=== PATIENT | female | born 1930 | race Caucasian/White ===

== ENCOUNTER 2017-10-09 13:35 | Emergency (ER) | payer MEDICARE ==
[~2017-10-09] VITALS: Ht 165.1 cm; Wt 67.1 kg
[~2017-10-09 13:35] MED LIST: CALCIUM; CELEBREX; CLIN150 PO; CRESTOR; CYCL10; DIOVAN; DITROPAN; ESCI10 PO; Fibercon625 MG PO; Florastor250 MG PO; HYDACE5 PO; HYDR1TAB94; LEVSOD88 PO; Lovenox100 MG/1 M SC; MIRT15ST MM; Synthroid112 MCG PO; THYROID; VITAMIN D; Vancocin HCL1000 M1 PO; WARF2; WARF5; ZOLP5 PO; [UNRECOGNIZED DRUG - OTHER]
[2017-10-09] MEDS ORDERED: Hair, Skin & N1 EACH PO (15:03)
[2017-10-09] MEDS ORDERED: SACC250C PO (15:04)
[2017-10-09] MEDS ORDERED: Percocet 5-3251 EACH PO (17:20)
== END 2017-10-09 17:33 | disposition home or self-care (01) ==
LOC: ER 13:35
DX: T84.020A Dislocation of internal right hip prosthesis, initial encounter (principal); E03.9 Hypothyroidism, unspecified; I10 Essential (primary) hypertension; Z87.891 Personal history of nicotine dependence; Z96.643 Presence of artificial hip joint, bilateral; X37.1XXA Tornado, initial encounter
CPT/HCPCS: 27265; 73502; 96374; 99152; 99284; J3010; J7030

== ENCOUNTER → 2018-07-18 | Outpatient (CLI) | payer MEDICARE, OTHER ==
[~2018-07-18] MED LIST changes: +Hair, Skin & N1 EACH PO; +Percocet 5-3251 EACH PO; +SACC250C PO
== END | disposition home or self-care (01) ==
LOC: LAB 17:50 → LAB SHORT 17:50
DX: R19.7 Diarrhea, unspecified (principal)
CPT/HCPCS: 87493

== ENCOUNTER 2019-08-08 10:44 | Observation (INO) | payer MEDICARE, OTHER ==
[~2019-08-08] VITALS: Ht 162.6 cm; Wt 58.2 kg
[2019-08-08 12:38] LABS: BASOPHILS ABSOLUTE AUTO 0.07 K/mm3 (0.00-0.23); BASOPHILS PERCENT AUTO 1 % (0-2); EOSINOPHILS ABSOLUTE AUTO 0.08 K/mm3 (0.00-0.68); EOSINOPHILS PERCENT AUTO 1 % (0-6); Hematocrit 40.5 % (33.0-51.0); Hemoglobin 14.2 g/dL (11.5-16.0); IMMATURE GRAN ABSOLUTE AUTO 0.02 K/mm3 (0.00-0.10); IMMATURE GRAN PERCENT AUTO 0 % (0-1); LYMPHOCYTES ABSOLUTE AUTO 1.24 K/mm3 (0.84-5.20); LYMPHOCYTES PERCENT AUTO 12 % (21-46); MONOCYTES ABSOLUTE AUTO 0.92 K/mm3 (0.16-1.47); MONOCYTES PERCENT AUTO 9 % (4-13); Mean Corpuscular HGB 31.9 pg (26.0-34.0); Mean Corpuscular HGB Conc 35.1 g/dL (31.5-36.5); Mean Corpuscular Volume 91 fL (80-100); NEUTROPHILS ABSOLUTE AUTO 7.76 K/mm3 (1.96-9.15); NEUTROPHILS PERCENT AUTO 77 % (41-73); Platelet Count 390 K/mm3 (150-400); RDW Coefficient Variation 12.5 % (11.7-14.2); RDW Standard Deviation 41.7 fL (35.1-46.3); Red Blood Cell Count 4.45 M/mm3 (3.80-5.20); White Blood Cell Count 10.09 K/mm3 (4.00-11.30)
[2019-08-08 13:00] LABS: Alanine Aminotransfer (ALT/SGP 19 U/L (12-78); Albumin, Blood 3.3 g/dL (3.4-5.0); Albumin/Globulin Ratio 0.7 (0.8-1.8); Alk Phos 97 U/L (50-136); Anion Gap 9 mmol/L (6-16); Aspartate Aminotrans (AST/SGOT 15 U/L (12-37); Bilirubin, Total 0.7 mg/dL (0.1-1.0); Blood Urea Nitrogen 26 mg/dL (8-24); Bun/Creatinine Ratio 31.8 (12.0-20.0); CO2, Blood 26 mmol/L (21-32); Calcium, Blood 9.1 mg/dL (8.5-10.1); Chloride, Blood 104 mmol/L (98-108); Creatinine, Blood 0.82 mg/dL (0.40-1.00); Globulin, Blood 4.6 g/dL (2.2-4.0); Glomerular Filtration Rate >60 (60-); Glucose, Blood 117 mg/dL (70-99); Potassium, Blood 2.7 mmol/L (3.5-5.5); Sodium, Blood 139 mmol/L (136-145); Total Protein, Blood 7.9 g/dL (6.4-8.2)
[2019-08-08 14:30] LABS: Magnesium, Blood 1.9 mg/dL (1.6-2.4); Phosphorus, Blood 2.3 mg/dL (2.5-4.9)
[2019-08-08] MEDS ORDERED: MICROZIDE12.5 M2 PO (15:32)
[2019-08-08 18:33] LABS: Source, Urine Clean Catch
[2019-08-08 18:39] LABS: Bilirubin, Urine Neg (Neg); Blood, Urine 2+ (Neg); Glucose Qualitative, Urine Neg (Neg); Ketones, Urine 2+ (Neg); Leukocyte Esterase, Urine 1+ (Neg); Nitrite, Urine Neg (Neg); Protein, Urine 1+ (Neg); Specific Gravity, Urine 1.015 (1.003-1.022); Urobilinogen, Urine 1+ (Normal)
[2019-08-08 18:56] LABS: Appearance, Urine Clear (Clear); Color, Urine Amber (P-Yellow)
[2019-08-08 18:57] LABS: Bacteria Many /hpf; Mucus Light (0-Heavy); Red Blood Cells, Urine 0-2 /hpf (0-2); Squamous Epithelial Cells Few /hpf (Few); White Blood Cells, Urine 0-2 /hpf (0-5)
--- NOTE | 2019-08-08 20:02 | NUR ---
ADMIT NOTE- RECIEVED TELEPHONE REPORT FROM ED RN. PASSED ON IN REPORT TO NIGHT RN FRANNIE WHO IS DOING THE ADMIT AT THIS TIME. PT ALERT AND ORIENTED TO SELF AND FAMILY. PT HAS A PURPLE TURBINE AND SUNGLASSES THAT SHE IS WEARING AND DOES NOT WANT TO REMOVE.
[2019-08-08] MEDS ORDERED: FERSU300 PO (20:19)
--- NOTE | 2019-08-09 04:59 | NUR ---
SHIFT SUMMARY PT AOX4. PT HAD NO COMPLAINTS NOTED. PT HAS SLEPT WELL T/O SHIFT. PT DENIES ANY DISCOMFORT. PT CURRENTLY SLEEPING AND BREATHING EASY. CALL LIGHT IN REACH
[2019-08-09 05:02] LABS: BASOPHILS ABSOLUTE AUTO 0.05 K/mm3 (0.00-0.23); BASOPHILS PERCENT AUTO 1 % (0-2); EOSINOPHILS ABSOLUTE AUTO 0.16 K/mm3 (0.00-0.68); EOSINOPHILS PERCENT AUTO 3 % (0-6); Hematocrit 32.8 % (33.0-51.0); Hemoglobin 11.4 g/dL (11.5-16.0); IMMATURE GRAN ABSOLUTE AUTO 0.03 K/mm3 (0.00-0.10); IMMATURE GRAN PERCENT AUTO 1 % (0-1); LYMPHOCYTES ABSOLUTE AUTO 1.64 K/mm3 (0.84-5.20); LYMPHOCYTES PERCENT AUTO 25 % (21-46); MONOCYTES ABSOLUTE AUTO 0.71 K/mm3 (0.16-1.47); MONOCYTES PERCENT AUTO 11 % (4-13); Mean Corpuscular HGB 31.7 pg (26.0-34.0); Mean Corpuscular HGB Conc 34.8 g/dL (31.5-36.5); Mean Corpuscular Volume 91 fL (80-100); Mean Platelet Volume 9.7 fL (9.1-12.4); NEUTROPHILS ABSOLUTE AUTO 3.93 K/mm3 (1.96-9.15); NEUTROPHILS PERCENT AUTO 60 % (41-73); Platelet Count 314 K/mm3 (150-400); RDW Coefficient Variation 12.7 % (11.7-14.2); White Blood Cell Count 6.52 K/mm3 (4.00-11.30)
[2019-08-09 05:37] LABS: Magnesium, Blood 1.7 mg/dL (1.6-2.4)
[2019-08-09 05:51] LABS: Alanine Aminotransfer (ALT/SGP 12 U/L (12-78); Albumin, Blood 2.6 g/dL (3.4-5.0); Albumin/Globulin Ratio 0.7 (0.8-1.8); Alk Phos 65 U/L (50-136); Anion Gap 7 mmol/L (6-16); Aspartate Aminotrans (AST/SGOT 18 U/L (12-37); Bilirubin, Total 0.7 mg/dL (0.1-1.0); Blood Urea Nitrogen 17 mg/dL (8-24); Bun/Creatinine Ratio 27.4 (12.0-20.0); CO2, Blood 25 mmol/L (21-32); Calcium, Blood 8.1 mg/dL (8.5-10.1); Chloride, Blood 109 mmol/L (98-108); Creatinine, Blood 0.62 mg/dL (0.40-1.00); Globulin, Blood 3.6 g/dL (2.2-4.0); Glomerular Filtration Rate >60 (60-); Glucose, Blood 90 mg/dL (70-99); Phosphorus, Blood 2.4 mg/dL (2.5-4.9); Potassium, Blood 3.5 mmol/L (3.5-5.5); Sodium, Blood 141 mmol/L (136-145); Total Protein, Blood 6.2 g/dL (6.4-8.2)
--- NOTE | 2019-08-09 18:43 | NUR ---
SHIFT SUMMARY- PT ALERT AND ORIENTED. STATES SHE HAS LIGHT SENSITIVITY. IVF DC'D TODAY AND PT IV'S ARE SL AT THIS TIME. PT POTASSIUM IS UP TO 3.5 AT THE START OF THE SHIFT PT RECIEVING PO POTASSIUM AT THIS TIME. PT IS NOT VOIDING. BLADDER SCAN THIS MORNING SHOWED 750ML IN. NEW ORDER FOR STRAIGHT CATH AND WAIT 4 HOURS THEN BLADDER SCAN POST VOID, STRAIGHT CATH FOR VOLUME GREATER THAN 150. PT STATED SHE DOES NOT NEED TO VOID. BLADDER SCAN SHOWED 450ML. SPOKE TO DR VICK ORDER RECIEVED FOR BLADDER SCAN Q6 POST VOID (IF PT IS ABLE) AND STRAIGHT CATH FOR VOLUMES GREATER THAN 250ML.
--- NOTE | 2019-08-10 04:26 | NUR ---
SHIFT SUMMARY: PATIENT UP TO BSC SEVERAL TIMES THIS SHIFT WITH SOME SUCCESS. PATIENT RIGHT LEG VERY PAINFULL WITH LOSS OF ROM. WALKER USED FOR MOBILITY BUT PATIENT STILL NEEDS STRONG ASSIST. PATIENT COMPLIANT WITH USE OF CALL LIGHT, BED LOW AND LOCKED WITH EXIT ALARM ON, ALL OTHER VSS
[2019-08-10 06:20] LABS: Anion Gap 8 mmol/L (6-16); Blood Urea Nitrogen 8 mg/dL (8-24); Bun/Creatinine Ratio 12.8 (12.0-20.0); CO2, Blood 25 mmol/L (21-32); Chloride, Blood 110 mmol/L (98-108); Creatinine, Blood 0.63 mg/dL (0.40-1.00); Glomerular Filtration Rate >60 (60-); Glucose, Blood 90 mg/dL (70-99); Potassium, Blood 3.2 mmol/L (3.5-5.5); Sodium, Blood 143 mmol/L (136-145)
[2019-08-10 15:56] LABS: Magnesium, Blood 1.5 mg/dL (1.6-2.4); Potassium, Blood 3.8 mmol/L (3.5-5.5)
[2019-08-10] MEDS ORDERED: TAMS.4ER PO (16:52)
[2019-08-10] MEDS ORDERED: METAMUCIL660 GM PO (16:54)
--- NOTE | 2019-08-10 17:25 | NUR ---
DISCHARGE DISCHARGE MEDICATIONS AND INSTRUCTIONS EXPLAINED TO PATIENT AND PATIENT'S DAUGHTER. THEY STATED UNDERSTANDING. DAGO WILL CALL PATIENT WITH FOLLOW UP APPOINTMENT. IV'S REMOVED WITHOUT DIFFICULTY. BELONGINGS WITH PATIENT. PATIENT TRANSFERED TO PRIVATE VEHICLE VIA WHEELCHAIR. PATIENT'S DAUGHTER TRANSPORTING HER BACK TO [facility].
[2019-08-12] MEDS ORDERED: CENTRUM SILVER1 EAC2 PO (09:28)
[2019-08-12] MEDS ORDERED: FERSU300 PO (09:28)
[2019-08-12] MEDS ORDERED: MICROZIDE12.5 M2 PO (09:29)
== END 2019-08-10 17:25 | disposition home health service (06) ==
LOC: ER 10:44 → ERHOLD 10:45 → MEDS 19:30
PROVIDERS: Internal Medicine; Physician Assistant; ADMIT Hospitalist
DX: E87.6 Hypokalemia (principal); E83.42 Hypomagnesemia; E83.39 Other disorders of phosphorus metabolism; E88.09 Other disorders of plasma-protein metabolism, not elsewhere classified; E03.9 Hypothyroidism, unspecified; R33.9 Retention of urine, unspecified; R19.7 Diarrhea, unspecified; F32.9 Major depressive disorder, single episode, unspecified; Z79.899 Other long term (current) drug therapy; R41.3 Other amnesia; Z91.19 Patient's noncompliance with other medical treatment and regimen; Z91.81 History of falling; Z66 Do not resuscitate; Z88.0 Allergy status to penicillin; Z88.1 Allergy status to other antibiotic agents; Z88.2 Allergy status to sulfonamides
CPT/HCPCS: 36415; 74018; 80048; 80053; 81001; 83735; 84100; 84132; 84443; 85025; 87086; 93005; 93010; 96361; 96365; 96366; 96367; 96372; 97110; 97116; 97162; 97166; 97530; 97535; 99285-25; G0378; J1650; J3480; J7030; J7060; J7120; P9612

== ENCOUNTER 2019-08-24 07:40 | Inpatient (IN) | payer MEDICARE, OTHER ==
[~2019-08-24] VITALS: Ht 165.1 cm; Wt 51.9 kg
[~2019-08-24 07:40] MED LIST changes: +CENTRUM SILVER1 EAC2 PO; +FERSU300 PO; +METAMUCIL660 GM PO; +MICROZIDE12.5 M2 PO; +TAMS.4ER PO
[2019-08-24 08:23] LABS: BASOPHILS PERCENT AUTO 1 % (0-2); EOSINOPHILS ABSOLUTE AUTO 0.12 K/mm3 (0.00-0.68); EOSINOPHILS PERCENT AUTO 1 % (0-6); Hematocrit 37.1 % (33.0-51.0); IMMATURE GRAN PERCENT AUTO 1 % (0-1); LYMPHOCYTES ABSOLUTE AUTO 1.67 K/mm3 (0.84-5.20); LYMPHOCYTES PERCENT AUTO 12 % (21-46); MONOCYTES ABSOLUTE AUTO 0.65 K/mm3 (0.16-1.47); MONOCYTES PERCENT AUTO 5 % (4-13); Mean Corpuscular HGB 31.7 pg (26.0-34.0); Mean Corpuscular HGB Conc 32.3 g/dL (31.5-36.5); Mean Platelet Volume 9.1 fL (9.1-12.4); NEUTROPHILS ABSOLUTE AUTO 11.53 K/mm3 (1.96-9.15); NEUTROPHILS PERCENT AUTO 81 % (41-73); Platelet Count 505 K/mm3 (150-400); RDW Coefficient Variation 12.3 % (11.7-14.2); RDW Standard Deviation 43.9 fL (35.1-46.3); Red Blood Cell Count 3.79 M/mm3 (3.80-5.20); White Blood Cell Count 14.27 K/mm3 (4.00-11.30)
[2019-08-24 08:36] LABS: Alanine Aminotransfer (ALT/SGP 31 U/L (12-78); Albumin, Blood 2.8 g/dL (3.4-5.0); Albumin/Globulin Ratio 0.6 (0.8-1.8); Alk Phos 92 U/L (50-136); Anion Gap 8 mmol/L (6-16); Aspartate Aminotrans (AST/SGOT 42 U/L (12-37); Bilirubin, Total 0.5 mg/dL (0.1-1.0); Blood Urea Nitrogen 17 mg/dL (8-24); Bun/Creatinine Ratio 22.7 (12.0-20.0); CO2, Blood 27 mmol/L (21-32); Calcium, Blood 8.7 mg/dL (8.5-10.1); Chloride, Blood 104 mmol/L (98-108); Creatinine, Blood 0.75 mg/dL (0.40-1.00); Globulin, Blood 4.8 g/dL (2.2-4.0); Glomerular Filtration Rate >60 (60-); Glucose, Blood 140 mg/dL (70-99); Potassium, Blood 3.8 mmol/L (3.5-5.5); Sodium, Blood 139 mmol/L (136-145); Total Protein, Blood 7.6 g/dL (6.4-8.2); Troponin I <0.015 ng/mL (0.000-0.040)
[2019-08-24 08:48] LABS: Mean Corpuscular Volume 98 fL (80-100)
[2019-08-24 10:07] LABS: Source, Urine Clean Catch
[2019-08-24 10:23] LABS: Bilirubin, Urine Neg (Neg); Blood, Urine 2+ (Neg); Glucose Qualitative, Urine Neg (Neg); Ketones, Urine Neg (Neg); Leukocyte Esterase, Urine 3+ (Neg); Nitrite, Urine Pos (Neg); Protein, Urine 2+ (Neg); Urobilinogen, Urine NORM (Normal)
[2019-08-24 10:28] LABS: Appearance, Urine Cloudy (Clear); Color, Urine Yellow (P-Yellow)
[2019-08-24 10:33] LABS: Bacteria Many /hpf; Squamous Epithelial Cells Many /hpf (Few); White Blood Cells, Urine TNTC /hpf (0-5)
[2019-08-24 10:34] LABS: Transitional Epithelial Cells Few /hpf (0-Rare)
[2019-08-24] MEDS ORDERED: TAMS.4ER PO (15:00)
[2019-08-24] MEDS ORDERED: TRAM50 PO (15:01)
--- NOTE | 2019-08-24 17:36 | NUR ---
PT ARRIVED TO THE MEDICAL FLOOR AROUND 1440 VIA STRETCHER FROM THE ER, PT IS A/OX3, PLEASANT AND COOPERATIVE, THE PT REPORTED THAT SHE WAS UNABLE TO STAND AT THIS TIME, THE PT APPEARED TO BE BREATHING EASILY ON RA AT THIS TIME, PT DENIED ANY DIZZINESS AT THIS TIME, PT ALLOWED A PHOTO OF HER COCCYX TO BE TAKEN WOUND CARE WAS GIVEN AND DRESSING REAPPLIED, PT AND FAMILY WERE ORIENTED TO THE ROOM LAYOUT AND CALL SYSTEM, CALL LIGHT IN REACH, PT RESITING AT THIS TIME
--- NOTE | 2019-08-25 04:41 | NUR ---
SHIFT SUMMARY PT HAS RESTED IN BED MOST OF THE NIGHT. OCCASIONAL HIP PAIN THAT IS RELIEVED WITH TRAMADOL AND REPOSITIONING. PT HAS DENIED NEEDS OTHERWISE. A/OX4 AND MAKES NEEDS KNOWN. PLESANT AND COOPERATIVE WITH CARE. NO ACUTE CHANGES OVERNIGHT. BED IN LOWEST POSITION, CALL LIGHT WITHIN REACH. WILL CONTINUE TO MONITOR AND REPORT TO ONCOMING RN.
[2019-08-25] MEDS ORDERED: Metamucil Smooth1 EA PO (10:58)
[2019-08-25] MEDS ORDERED: ACET325 PO (11:04)
--- NOTE | 2019-08-25 16:15 | NUR ---
PT IS A/OX3, PT IS A MODERATE TO MAXIMUM ASSIST UP, THE PT WAS VERY WEAK ON HER FEET THIS AM WHEN STANDING AT THE SIDE OF HER BED FOR ORTHOSTATIC VS, PT DID REPORT SOME DIZZINESS WHEN SHE FIRST STOOD UP, THE PT WAS MEDICACTED FOR HIP AND BACK PAIN X2 SO FAR TODAY, PT REPOSITIONED T/O THE DAY, HOWEVER REPORTED THAT SHE COULD NOT GET COMFORTABLE, FAMILY AT THE BEDSIDE A TIMES T/O THE DAY, PT APPEARS TO BE BREATHING EASILY AT REST, WILL CONTINUE TO MONITOR AND ASSESS FOR CHANGES
[2019-08-25 17:35] LABS: Source, Urine Catheter
[2019-08-25 17:44] LABS: Bilirubin, Urine Neg (Neg); Blood, Urine 1+ (Neg); Glucose Qualitative, Urine Neg (Neg); Ketones, Urine Neg (Neg); Leukocyte Esterase, Urine 3+ (Neg); Nitrite, Urine Neg (Neg); Protein, Urine 1+ (Neg); Urobilinogen, Urine NORM (Normal)
[2019-08-25 17:50] LABS: Appearance, Urine Hazy (Clear); Color, Urine Yellow (P-Yellow)
[2019-08-25 17:51] LABS: Bacteria Many /hpf; Red Blood Cells, Urine 0-2 /hpf (0-2); Squamous Epithelial Cells Rare /hpf (Few)
--- NOTE | 2019-08-26 04:24 | NUR ---
URINARY RENTENTION/HYPOTENSION PT HYPOTENSIVE THIS AM /53, PT ASYMPTOMATIC. PT ALSO HAS NOT VOIDED THIS SHIFT 388 MLS IN BLADDER WITH SCAN. PT HAS HAD URINARY RETENTION REQUIRING STRAIGHT CATHERIZATION DURING HER ADMISSION. DR. ALEJANDRA NOTIFIED OF HYPOTENSION AND RETENTION. RECEIVED ORDER FOR 500 CC BOLUS AND ANOTHER BLADDER SCAN IN FOUR HOURS, DID NOT RECEIVE LAUGHLIN OR STRAIGHT CATH ORDER.
--- NOTE | 2019-08-26 04:27 | NUR ---
SHIFT SUMMARY PT HAS RESTED MOST OF THE NIGHT, SHE HAS DENIED PAIN. PT A/OX4 AND COOPERATIVE WITH CARE. SHE IS VERY FLAT AND WITHDRAWN IN AFFECT. PT DOES NOT COMMUNICATE MUCH WITH STAFF. HOWEVER MAKES NEEDS KNOWN. HYPOTENSION AND URINARY RETENTION THIS SHIFT. DR. ALEJANDRA NOTIFIED AND ORDERS PLACED. NO ACUTE CHANGES IN PT ASSESSMENT OTHERWISE. BED IN LOWEST POSITION, CALL LIGHT WITHIN REACH. WILL CONTINUE TO MONITOR AND REPORT TO ONCOMING RN.
[2019-08-26 05:21] LABS: BASOPHILS ABSOLUTE AUTO 0.09 K/mm3 (0.00-0.23); BASOPHILS PERCENT AUTO 1 % (0-2); EOSINOPHILS ABSOLUTE AUTO 0.13 K/mm3 (0.00-0.68); EOSINOPHILS PERCENT AUTO 1 % (0-6); Hematocrit 33.9 % (33.0-51.0); Hemoglobin 10.7 g/dL (11.5-16.0); IMMATURE GRAN ABSOLUTE AUTO 0.13 K/mm3 (0.00-0.10); IMMATURE GRAN PERCENT AUTO 1 % (0-1); LYMPHOCYTES ABSOLUTE AUTO 1.32 K/mm3 (0.84-5.20); LYMPHOCYTES PERCENT AUTO 11 % (21-46); MONOCYTES PERCENT AUTO 8 % (4-13); Mean Corpuscular HGB 31.1 pg (26.0-34.0); Mean Corpuscular HGB Conc 31.6 g/dL (31.5-36.5); Mean Corpuscular Volume 99 fL (80-100); NEUTROPHILS ABSOLUTE AUTO 9.48 K/mm3 (1.96-9.15); NEUTROPHILS PERCENT AUTO 78 % (41-73); Platelet Count 493 K/mm3 (150-400); RDW Coefficient Variation 12.3 % (11.7-14.2); RDW Standard Deviation 44.2 fL (35.1-46.3); Red Blood Cell Count 3.44 M/mm3 (3.80-5.20); White Blood Cell Count 12.15 K/mm3 (4.00-11.30)
[2019-08-26 05:48] LABS: Anion Gap 6 mmol/L (6-16); Blood Urea Nitrogen 16 mg/dL (8-24); CO2, Blood 28 mmol/L (21-32); Calcium, Blood 8.7 mg/dL (8.5-10.1); Chloride, Blood 105 mmol/L (98-108); Creatinine, Blood 0.84 mg/dL (0.40-1.00); Glomerular Filtration Rate >60 (60-); Glucose, Blood 94 mg/dL (70-99); Potassium, Blood 4.3 mmol/L (3.5-5.5); Sodium, Blood 139 mmol/L (136-145)
--- NOTE | 2019-08-26 16:16 | NUR ---
PT IS A/OX3, PLEASANT AND COOPERATIVE, UP WITH 1 PERSON ASSIST TO THE CHAIR, THE PT APPEARS TO BE BREATHING EASILY ON RA AT THIS TIME, THE PT WORKED WITH THE PHYSICAL AND THE OCCUPATIONAL THERAPIST TODAY, THE PT HAS PAIN IN HER HIPS BUT SO FAR TODAY HAS NOT REQIURED PAIN MEDICATION, PT HAS NOT BEEN ABLE TO VOID COMPLETLY AND HAS REQUIRED TO BE STRAIGHT CATHED FOR RELIEF, PT REQUEST FEMALE NURSE TO DO THE PROCEDURE, PT HAS REPOSITIONED HERSELF T/O THE DAY ON BOTH SIDES, COCCYX WOUND DRESSING WAS CHANGED TODAY, CALL LIGHT IN REACH, FAMILY AT THE BEDSIDE T/O THE DAY
--- NOTE | 2019-08-26 16:43 | NUR ---
Per admit trigger, I met with Mrs. Chatman to offer prayer and spiritual encouragement. She appears frail, sleepy, and withdrawn. Clearly she was not up for lengthy conversation. She did not wish to talk about her illness. She allowed me to pray "if you want." I will remain available.
--- NOTE | 2019-08-26 22:45 | NUR ---
BLADDER SCAN PERFORMED PER ORDER= 243ML. WILL CONT TO MONITOR.
--- NOTE | 2019-08-27 02:34 | NUR ---
BLADDER SCAN DONE= 438ML IN BLADDER. WILL CONT TO MONITOR.
[2019-08-27 05:36] LABS: BASOPHILS ABSOLUTE AUTO 0.09 K/mm3 (0.00-0.23); BASOPHILS PERCENT AUTO 1 % (0-2); EOSINOPHILS ABSOLUTE AUTO 0.16 K/mm3 (0.00-0.68); EOSINOPHILS PERCENT AUTO 2 % (0-6); Hematocrit 32.3 % (33.0-51.0); Hemoglobin 10.3 g/dL (11.5-16.0); IMMATURE GRAN ABSOLUTE AUTO 0.13 K/mm3 (0.00-0.10); IMMATURE GRAN PERCENT AUTO 1 % (0-1); LYMPHOCYTES ABSOLUTE AUTO 1.16 K/mm3 (0.84-5.20); LYMPHOCYTES PERCENT AUTO 13 % (21-46); MONOCYTES ABSOLUTE AUTO 0.89 K/mm3 (0.16-1.47); MONOCYTES PERCENT AUTO 10 % (4-13); Mean Corpuscular HGB 30.8 pg (26.0-34.0); Mean Corpuscular HGB Conc 31.9 g/dL (31.5-36.5); Mean Corpuscular Volume 97 fL (80-100); Mean Platelet Volume 9.5 fL (9.1-12.4); NEUTROPHILS PERCENT AUTO 74 % (41-73); Platelet Count 429 K/mm3 (150-400); RDW Coefficient Variation 12.1 % (11.7-14.2); RDW Standard Deviation 43.3 fL (35.1-46.3); Red Blood Cell Count 3.34 M/mm3 (3.80-5.20); White Blood Cell Count 9.23 K/mm3 (4.00-11.30)
[2019-08-27 06:07] LABS: Magnesium, Blood 1.9 mg/dL (1.6-2.4)
[2019-08-27 06:10] LABS: Alanine Aminotransfer (ALT/SGP 25 U/L (12-78); Albumin, Blood 2.3 g/dL (3.4-5.0); Albumin/Globulin Ratio 0.5 (0.8-1.8); Alk Phos 69 U/L (50-136); Anion Gap 6 mmol/L (6-16); Aspartate Aminotrans (AST/SGOT 28 U/L (12-37); Bilirubin, Total 0.3 mg/dL (0.1-1.0); Blood Urea Nitrogen 14 mg/dL (8-24); Bun/Creatinine Ratio 23.5 (12.0-20.0); CO2, Blood 27 mmol/L (21-32); Calcium, Blood 8.6 mg/dL (8.5-10.1); Chloride, Blood 108 mmol/L (98-108); Globulin, Blood 4.3 g/dL (2.2-4.0); Glomerular Filtration Rate >60 (60-); Glucose, Blood 88 mg/dL (70-99); Phosphorus, Blood 2.9 mg/dL (2.5-4.9); Potassium, Blood 3.7 mmol/L (3.5-5.5); Sodium, Blood 141 mmol/L (136-145); Total Protein, Blood 6.6 g/dL (6.4-8.2)
--- NOTE | 2019-08-27 06:31 | NUR ---
BLADDER SCAN DONE= 593ML. PERFORMED STRAIGHT CATH PER ORDER. TOTAL OUTPUT OF 800ML. PT. TOLERATED WELL. PT. REPOSITIONED, ATTENDS IN PLACE. WILL CONT TO MONITOR.
--- NOTE | 2019-08-27 06:32 | NUR ---
SHIFT SUMMARY- PT. A&O, APPEARED TO HAVE RESTED COMFORTABLY IN BED T/O THE NIGHT. NO APPARENT DISTRESS NOTED. BLADDER SCANS DONE T/O THE SHIFT PER ORDER AND STRAIGHT CATH DONE X1 (SEE NURSE NOTE). PT. TOLERATED WELL. DENIED ANY NEEDS DURING THE NIGHT. CALL LIGHT WITHIN REACH AND SIDE RAILS UP X2. WILL CONT TO MONITOR.
[2019-08-27] MEDS ORDERED: FERSU300 PO (11:34)
[2019-08-27] MEDS ORDERED: CENTRUM ADULTS1 EACH PO (11:35)
[2019-08-27] MEDS ORDERED: Florastor250 MG PO (11:35)
[2019-08-27] MEDS ORDERED: CEFP200 PO (11:36)
--- NOTE | 2019-08-27 19:05 | NUR ---
PT. IN BED ALL DAY TODAY. REFUSED BREAKFAST AND LUNCH BUT ATE SOME OF THEIR DINNER WHEN SON ARRIVED. PAIN MEDS GIVEN AROUN 1750 FOR HIP PAIN. SS/PALLIATIVE CARE/HH&HOSPICE TRYING TO GET PLACEMENT FOR PT. BASILIA CARRILLO DECLINED TAKING HER BACK BECAUSE SHE WAS A 2-PERSON ASSIST UP. LAUGHLIN CATHETER PLACED R/T PT. RETAINING URINE. NO OTHER NOTEABLE CHANGES.
--- NOTE | 2019-08-27 19:24 | NUR ---
Clinical Visit: Many conversations with the patient's daughter, hospitalist, care management, and Alyssa raison. Called to evaluate the pt's qualification for hospice. Call to [facility]. They do not feel that she qualifies for hospice. Call to [facility]. They feel that there is enough evidence to qualify the pt. Spoke to Alyssa to update. Dr. 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 Pt is also bedbound, has lost weight in the last couple months. KPS: 30% PPS: 30% Pt seems lucid and oriented at time of visit. She expresses that she no longer wants to go to the hospital or the doctor. 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 She has poor PO intake and has not eaten anything today. [facility] has hospice opening on for her.
--- NOTE | 2019-08-28 04:52 | NUR ---
SHIFT SUMMARY- NO ACUTE CHANGES OVERNIGHT. PT. C/O RT HIP PAIN. MEDICATED PER EMAR X1. PT. APPEARED TO HAVE GOOD RELIEF. SLEPT T/O MOST OF THE SHIFT. NO APPARENT DISTRESS NOTED. REPOSITIONED FOR COMFORT PRN, LAUGHLIN CATHETER IN PLACE AND DRAINING WELL. PLAN FOR POSS D/C TO [facility]. CALL LIGHT WITHIN REACH AND SIDE RAILS UP X2. WILL CONT TO MONITOR.
--- NOTE | 2019-08-28 18:52 | NUR ---
PT. LYING QUIETLY, NO NOTEABLE CHANGES THIS SHIFT. PT. IIS TO BE DISCHARGED IN THE AT 1000 TO RETURN TO [facility] ON HOSPICE. PAPERWORK SHOULD BE COMPLETE, CALL SHANTI WITH [facility] IF ANY QUESTIONS OR [facility]. GOING BY [facility]ENCHO GOEL.
--- NOTE | 2019-08-29 03:15 | NUR ---
RESTING QUIETLY WITH NO NOTED INTERRUPTIONS THIS SHIFT. EACH TIME NURSE DID ROUNDING, PT WAS NOTED TO BE RESTING QUIETLY. CALL LIGHT IN REACH
[2019-08-29] MEDS ORDERED: HYDR1TAB94 PO (08:44)
--- NOTE | 2019-08-29 08:50 | NUR ---
PLAN TO DC TO [facility] THIS DR BURNETT REVIEWED DC ORDERS FROM A COUPLE DAYS AGO, MEDICATION CHANGES NOTED AND FAXED TO FACILITY. NEW ORDERS INCLUDED IN DC PACKET TO GO WITH PT TO FACILITY.
--- NOTE | 2019-08-29 10:17 | NUR ---
PT DCD TO [facility]. CHARGE NURSE COMPLETED DC PACKET AND SENT TO FACILITY. NO IV ACCESS. [facility] TO COVER PT AT FACILITY. ALL PERSONAL BELONGINGS SENT WITH PT. PT DAUGHTER AT BEDSIDE DURING TRANSFER. [facility] TRANSPORTED. PT STABLE UPON DC. PACKET SENT WITH [facility].
== END 2019-08-29 09:37 | disposition hospice, home (50) | DRG 690 ==
LOC: ER 07:40 → MEDS 07:41 → ENPENDDIS 08-27 10:41 → MEDS 08-29 09:37
PROVIDERS: Emergency Medicine; Hospitalist; ADMIT Internal Medicine
DX: N39.0 Urinary tract infection, site not specified (principal); B95.4 Other streptococcus as the cause of diseases classified elsewhere; R62.7 Adult failure to thrive; R33.9 Retention of urine, unspecified; N31.9 Neuromuscular dysfunction of bladder, unspecified; E03.9 Hypothyroidism, unspecified; F32.9 Major depressive disorder, single episode, unspecified; I10 Essential (primary) hypertension; E86.0 Dehydration; Z66 Do not resuscitate; Z51.5 Encounter for palliative care; D64.89 Other specified anemias; R55 Syncope and collapse; Z91.041 Radiographic dye allergy status; Z88.0 Allergy status to penicillin; Z88.2 Allergy status to sulfonamides; Z88.8 Allergy status to other drugs, medicaments and biological substances; Z87.891 Personal history of nicotine dependence; Z68.20 Body mass index [BMI] 20.0-20.9, adult; Z86.73 Personal history of transient ischemic attack (TIA), and cerebral infarction without residual deficits
CPT/HCPCS: 36415; 70450; 71045; 80048; 80053; 81001; 83735; 84100; 84484; 85025; 87077; 87086; 87186; 93005; 93010; 96361; 96365; 96366; 96372; 97161; 97165; 97530; 99285-25; A9270-GY; G0378; J0696; J1650; J7030; P9612